=== PATIENT | female | born 1965 | race Caucasian/White ===

== ENCOUNTER 2018-06-24 13:06 | Emergency (ER) | payer SELFPAY ==
[2018-06-24] MEDS ORDERED: CYCLOBENZAPRINE 10 MG TABLET PO STA (16:56)
[2018-06-24] MEDS ORDERED: HYDROmorphone 1 MG/ML CARPUJECT IM STA (16:56)
--- NOTE | 2018-06-24 17:00 | ED Physician Documentation ---
PD HPI BACK INJURY - Stated complaint Stated Complaint: PELVIC PX - History obtained from History obtained from: Patient - History of Present Illness Location: Left (This is a 53-year-old woman who just moved from [place] and for the last week is having a flare of her chronic intermittent left-sided sciatica. She hurts above the left sciatic notch down into the thigh with a burning pain in the thigh and some numbness in the left leg but no saddle anesthesia, weakness, fevers, incontinence.) Review of Systems Constitutional: denies: Fever, Chills Nose: denies: Rhinorrhea / runny nose, Congestion Musculoskeletal: reports: Back pain. denies: Neck pain PD PAST MEDICAL HISTORY - Past Medical History Past Medical History: Yes Respiratory: COPD - Present Medications Home Medications: Ambulatory Orders Medication Instructions Recorded Confirmed Cyclobenzaprine [Flexeril] 10 mg PO TID PRN #20 tablet 06/24/18 Hydrocodone/Acetaminophen 1 each PO Q4H PRN #15 tablet 06/24/18 [Hydrocodon-Acetaminoph 7.5-325] predniSONE [Deltasone] 20 mg PO [id number] #21 tab 06/24/18 - Allergies Allergies/Adverse Reactions: Allergies Allergy/AdvReac Type Severity Reaction Status Date / Time amoxicillin Allergy Unknown Verified 06/24/18 13:24 cephalexin [From Keflex] Allergy Unknown Verified 06/24/18 13:24 Penicillins Allergy Unknown Verified 06/24/18 13:24 PD ED PE NORMAL - Vitals Vital signs reviewed: Yes - General General: Other (BMI noted 64, On oxygen chronically.) - Back Back: No spinal TTP - Extremities Extremities: Other (She has mildly diminished sensation in the left L4-L5 distribution with intact and symmetric patellar and Achilles reflexes and normal strength throughout.) - Neuro Neuro: Alert and oriented X 3, Normal speech Results - Vitals Vitals: Vital Signs - 24 hr 06/24/18 13:16 Temperature 36 C L Heart Rate 68 Respiratory 20 Rate Blood Pressure 123/61 O2 Saturation 96 Oxygen O2 Source Nasal cannula Departure - Departure Disposition: Home, Self Care Clinical Impression: Sciatica Qualifiers: Laterality: left Qualified Code(s): M54.32 - Sciatica, left side Condition: Good Record reviewed to determine appropriate education?: Yes Instructions: ED Sciatica Follow-Up: [facility] [Provider Group] Prescriptions: Cyclobenzaprine [Flexeril] 10 mg PO TID PRN #20 tablet PRN Reason: Spasms Hydrocodone/Acetaminophen [Hydrocodon-Acetaminoph 7.5-325] 1 each PO Q4H PRN #15 tablet PRN Reason: Pain predniSONE [Deltasone] 20 mg PO [id number] #21 tab
[2018-06-24 17:20] VITALS: BP 137/83
== END 2018-06-24 17:21 | disposition home or self-care (01) ==
LOC: ED 13:06
DX: M54.32 Sciatica, left side (principal); J44.9 Chronic obstructive pulmonary disease, unspecified; Z99.81 Dependence on supplemental oxygen
CPT/HCPCS: 96372; 99283; A9270; J1170

== ENCOUNTER 2018-07-10 08:09 | Outpatient (CLI) | payer MEDICAID ==
[2018-07-10 13:00] LABS: BASOPHILS # (AUTO) 0.1 10^3/uL (0.0-0.1); BASOPHILS % (AUTO) 0.4 %; EOSINOPHILS # (AUTO) 0.1 10^3/uL (0.0-0.7); EOSINOPHILS % (AUTO) 0.9 %; HGB - HEMOGLOBIN 12.2 g/dL (12.0-16.0); LYMPHOCYTES # (AUTO) 3.9 10^3/uL (1.5-3.5); LYMPHOCYTES % (AUTO) 25.6 %; MEAN CORPUSCULAR HEMOGLOBIN 24.1 pg (27.0-31.0); MEAN CORPUSCULAR HGB CONC 31.9 g/dL (32.0-36.0); MEAN CORPUSCULAR VOLUME 75.6 fL (81.0-99.0); MONOCYTES # (AUTO) 0.7 10^3/uL (0.0-1.0); MONOCYTES % (AUTO) 4.9 %; NEUTROPHILS # (AUTO) 10.3 10^3/uL (1.5-6.6); NEUTROPHILS % (AUTO) 68.2 %; PLT - PLATELET COUNT 284 10^3/uL (130-450); RED BLOOD COUNT 5.05 10^6/uL (4.20-5.40); RED CELL DISTRIBUTION WIDTH 19.6 % (12.0-15.0); WHITE BLOOD COUNT 15.2 x10^3/uL (4.8-10.8)
[2018-07-10 13:16] LABS: ALBUMIN 3.6 g/dL (3.2-5.5); ALBUMIN/GLOBULIN RATIO 1.1 (1.0-2.2); ALKALINE PHOSPHATASE 65 IU/L (42-121); ALT ALANINE AMINOTRANSFERASE 14 IU/L (10-60); AST ASPARTATE AMINOTRANSFERASE 13 IU/L (10-42); BILIRUBIN,TOTAL 0.4 mg/dL (0.2-1.0); BUN - BLOOD UREA NITROGEN 21 mg/dL (6-20); CALCIUM 8.9 mg/dL (8.5-10.3); CARBON DIOXIDE - CO2 29 mmol/L (21-32); CHLORIDE 98 mmol/L (101-111); CHOL/HDL RATIO 4.5 (<4.4); CHOLESTEROL 163 mg/dL; CREATININE 0.8 mg/dL (0.4-1.0); GFR - MDRD 75 (>89); GLUCOSE 101 mg/dL (70-100); HDL CHOLESTEROL 36 mg/dL; LDL CHOLESTEROL,CALCULATED 103 mg/dL; LDL/HDL RATIO 2.9 (<4.4); SODIUM 138 mmol/L (135-145); VLDL CHOLESTEROL 24 mg/dL
[2018-07-10 13:29] LABS: HB2 TOTAL 13.1 g/dL; HEMOGLOBIN A1C 0.57 g/dL; HEMOGLOBIN A1C % 6.1 % (4.6-6.2)
[2018-07-11 14:22] LABS: HEPATITIS C ANTIBODY NON-REACTIVE (NON-REACTIVE)
== END 2018-07-10 23:59 | disposition home or self-care (01) ==
LOC: LAB.N 08:09
PROVIDERS: ATTEND Physician Assistant Medical
DX: Z00.00 Encounter for general adult medical examination without abnormal findings (principal); E66.9 Obesity, unspecified; I10 Essential (primary) hypertension; J44.9 Chronic obstructive pulmonary disease, unspecified
CPT/HCPCS: 36415; 80050; 80061; 83036; 83721; 83880; 86803

== ENCOUNTER 2018-07-17 09:33 | Outpatient (CLI) | payer MEDICAID ==
[2018-07-17 13:06] LABS: CALCIUM 8.7 mg/dL (8.5-10.3); CREATININE 0.7 mg/dL (0.4-1.0)
== END 2018-07-17 23:59 | disposition home or self-care (01) ==
LOC: LAB.N 09:33
PROVIDERS: ATTEND Physician Assistant Medical
DX: E87.6 Hypokalemia (principal)
CPT/HCPCS: 36415; 80048